=== PATIENT | female | born 2000 | race Caucasian/White ===

== ENCOUNTER → 2022-03-13 12:06 | Outpatient (CLI) | payer OTHER, SELFPAY ==
--- NOTE | ~2022-03-13 | US_ITS ---
EXAMINATION: US OB /maternal detail DATE: 03/13/2022 12:49 INDICATION: Encounter for supervision of normal . TECHNIQUE: Real-time ultrasound of the pelvis was performed. COMPARISON: Ultrasound 12/31/2021 FINDINGS: There is a single living fetus in vertex presentation. The placenta is posterior, 5.5 cm from the ce rvix. heart rate is 154 beats per minute (bpm). The amniotic fluid volume is subjectively tania l. The following biometric data were obtained: Biparietal diameter (BPD): 4.6 cm; head circumference (HC): 17.5 cm; abdominal circumference (AC): 15 .4 cm; femur length (FL): 3.1 cm. These measurements are concordant. Estimated weight is 328 g +/- 49 g, which correlates with the 32nd percentile when 07/29/22 is used as estimated date of delivery. As single measurements, these parameters are each equal to the following estimated gestational ages w ith ranges of +/- 2 standard deviations: BPD: 19 weeks 6 days (18 weeks 1 days - 21 weeks 4 days). HC: 20 weeks 0 days (18 weeks 4 days - 21 weeks 3 days). AC: 20 weeks 4 days (18 weeks 3 days - 22 weeks 4 days). FL: 19 weeks 3 days (17 weeks 5 days - 21 weeks 2 days). estimated gestational age based solely on measurements from this exam is 20 weeks 0 days +/- 1 weeks 3 days. The cerebral ventricles, cerebellum, cisterna magna, nuchal fold, lip and visualized portions of the spine are normal. The heart is normal. The diaphragm, stomach, kidneys, and bladder are normal. There are two umbilical arteries to yield a 3-vessel cord. The cord insertion is normal. IMPRESSION: 1. Single living fetus in vertex presentation. 2. Estimated weight is 328 g +/- 49 g, which correlates with the 32nd percentile when 07/29/22 is used as estimated date of delivery. 3. Normal anatomic survey. Reviewed, dictated and finalized at location A. IMPRESSION: 1. Single living fetus in vertex presentation. 2. Estimated weight is 328 g +/- 49 g, which correlates with the 32nd pe rcentile when 07/29/22 is used as estimated date of delivery. 3. Normal anatomic survey.
== END ==
PROVIDERS: PCP Family Medicine; Visit Provider Obstetrics & Gynecology
DX: Z34.92 Encounter for supervision of normal pregnancy, unspecified, second trimester (principal); Z3A.20 20 weeks gestation of pregnancy
CPT/HCPCS: 76805

== ENCOUNTER 2022-05-25 22:55 | Outpatient (RCR) | payer OTHER, SELFPAY | END 2022-08-23 23:59 | disposition home or self-care (01) | LOC: ANHOBOP 22:55 | PROVIDERS: PCP Family Medicine; Visit Provider Obstetrics & Gynecology | DX: O36.8190 Decreased fetal movements, unspecified trimester, not applicable or unspecified (principal); Z3A.30 30 weeks gestation of pregnancy | CPT/HCPCS: 59025 ==

== ENCOUNTER 2022-07-22 11:28 | Outpatient (CLI) | payer OTHER, SELFPAY ==
[2022-07-22 12:01] VITALS: BP 141/88; PULSE 75
[2022-07-22 12:03] LABS: Basophils Percent Auto 0.2 % (0.2-1.2); Eosinophils Absolute Auto 0.3 K/mm3 (0-0.3); Eosinophils Percent Auto 2.3 % (0-4.4); Hematocrit 36.2 % (37.0-47.0); Hemoglobin 11.8 g/dL (12.0-15.0); Immature Granulocyte Absolute 0.03 K/mm3 (0.00-0.031); Immature Granulocyte Percent A 0.3 % (0-0.5); Lymphocytes Absolute Auto 1.67 K/mm3 (0.9-3.2); Lymphocytes Percent Auto 14.7 % (18.3-44.2); Mean Corpuscular HGB Conc 32.6 g/dl (32-36); Mean Corpuscular Volume 88.9 fl (80-100); Mean Platelet Volume 11.4 fl (7.4-10.4); Monocytes Absolute Auto 0.6 K/mm3 (0.1-0.6); Monocytes Percent Auto 5.4 % (2.6-8.5); Neutrophils Absolute Auto 8.8 K/mm3 (1.3-6.7); Neutrophils Percent Auto 77.1 % (45.5-73.1); Platelet Count Result 244 k/mm3 (150-375); Red Blood Count 4.07 M/mm3 (4.2-5.4); Red Cell Distribution Width 14.1 % (11.5-14.5); White Blood Count 11.4 K/mm3 (4.5-10.0)
[2022-07-22 12:16] VITALS: BP 134/78; PULSE 81
[2022-07-22 12:16] LABS: Alanine Aminotransferase 11 U/L (6-35); Albumin Level 3.5 g/dL (3.5-5.1); Alkaline Phosphatase 139 U/L (38-126); Anion Gap 5 mmol/L (8-16); Aspartate Amino Transferase 17 U/L (14-36); Bilirubin,Total 0.3 mg/dL (0.2-1.3); Blood Urea Nitrogen 8 mg/dL (7-17); Calcium 8.7 mg/dL (8.4-10.2); Carbon Dioxide 26 mmol/L (22-30); Chloride 103 mmol/L (98-107); Estimated Glomerular Filt Rate > 60; Glucose 79 mg/dL (65-110); Potassium 4.3 mmol/L (3.4-5.0); Sodium 134 mmol/L (137-145); Uric Acid 4.3 mg/dL (2.5-7.5)
[2022-07-22 12:31] VITALS: BP 130/77; PULSE 75
[2022-07-22 12:42] LABS: Total Protein Urine Random 107 mg/dL; Ur Ttl Prot Creatinine Ratio 0.37 mg/mg (0-0.20)
--- NOTE | 2022-07-22 13:05 | PC.NURSE ---
Called Dr. Bueno with lab results, and BPs. February D/C home.
== END 2022-07-22 13:18 | disposition home or self-care (01) ==
LOC: ANHOBOP 11:34 → ANHLDR 11:34
PROVIDERS: PCP Family Medicine; Visit Provider Obstetrics & Gynecology
DX: O13.3 Gestational [pregnancy-induced] hypertension without significant proteinuria, third trimester (principal); Z3A.39 39 weeks gestation of pregnancy
CPT/HCPCS: 36415; 59025; 80053; 82570; 84156; 84550; 85025; 99199

== ENCOUNTER 2022-07-29 02:35 | Observation (INO) | payer OTHER, SELFPAY ==
--- NOTE | 2022-07-29 03:59 | PC.NURSE ---
RNJoe notified Dr. Ho of PTs arrival to unit with complaints of contractions. SVE performed on admission 2. Nurse performed SVE an hour later, PT had no cervical change. Contractions 5-6 minutes apart. Discharge orders received.
[2022-07-29 04:15] VITALS: BMI 47.1
--- NOTE | 2022-07-29 04:28 | OBADM ---
This patient, Sunshine Goldstein, admitted to the OB room Labor/Delivery/Recovery 106 for observation. Patient/family oriented to hospital policies and general routines including ID bracelet, bed and alarms, visiting hours, pain management, procedures, bathroom and other care routines, personal items, smoking policy, room service/diet, and visiting hours. Patient/Family are encouraged to report perceived risks to care and to ask questions if they do not understand what they are told or what they should do.
--- NOTE | 2022-07-29 08:06 | PM.OBTRLD ---
OB - Triage/Final Diagnosis Visit Information Date of evaluation: 07/29/22 Reason for evaluation: threatened labor Comments/Additional reasons for admission: I have assessed the risk for this patient, Sunshine Bettie Goldstein, and determined that she would benefit from observation care. Evaluation Vital signs: Vital Signs - 24 hr 07/29/22 04:15 Oxygen Delivery Room Air
== END 2022-07-29 04:27 | disposition home or self-care (01) ==
PROVIDERS: Admitting Provider Obstetrics & Gynecology; PCP Family Medicine; Visit Provider Obstetrics & Gynecology
DX: O47.1 False labor at or after 37 completed weeks of gestation (principal); Z3A.40 40 weeks gestation of pregnancy
CPT/HCPCS: G0378; G0379

== ENCOUNTER 2022-07-29 08:52 | Inpatient (IN) | payer OTHER, SELFPAY ==
[2022-07-29] VITALS (113 sets, daily range): BP systolic 90–158; BP diastolic 37–115; PULSE 57–137; RESP 18; TEMP 36.6–36.9; O2SAT 91–100; BMI 47.2
--- NOTE | 2022-07-29 09:12 | LDADM ---
This patient, Sunshine Goldstein, was admitted to Labor/Delivery/Recovery 106 on 07/29/22 at 08:52. Plans for labor, pain management and were discussed with patient. Patient/family oriented to hospital policies and general routines including ID bracelet, bed and alarms, visiting hours, pain management, procedures, bathroom and other care routines, personal items, smoking policy, room service/diet and guest tray routines, security routines, and visiting hours. Patient/Family are encouraged to report perceived risks to care and to ask questions if they do not understand what they are told or what they should do. See OBIX for further documentation.
[2022-07-29 09:28] LABS: Basophils Percent Auto 0.2 % (0.2-1.2); Eosinophils Absolute Auto 0.2 K/mm3 (0-0.3); Eosinophils Percent Auto 1.2 % (0-4.4); Hematocrit 36.9 % (37.0-47.0); Hemoglobin 12.2 g/dL (12.0-15.0); Immature Granulocyte Absolute 0.06 K/mm3 (0.00-0.031); Immature Granulocyte Percent A 0.4 % (0-0.5); Lymphocytes Absolute Auto 1.51 K/mm3 (0.9-3.2); Lymphocytes Percent Auto 11.1 % (18.3-44.2); Mean Corpuscular HGB Conc 33.1 g/dl (32-36); Mean Corpuscular Hemoglobin 29.1 pg (26-34); Mean Corpuscular Volume 88.1 fl (80-100); Mean Platelet Volume 11.3 fl (7.4-10.4); Monocytes Absolute Auto 0.6 K/mm3 (0.1-0.6); Monocytes Percent Auto 4.3 % (2.6-8.5); Neutrophils Absolute Auto 11.3 K/mm3 (1.3-6.7); Neutrophils Percent Auto 82.8 % (45.5-73.1); Platelet Count Result 234 k/mm3 (150-375); Red Blood Count 4.19 M/mm3 (4.2-5.4); Red Cell Distribution Width 14.1 % (11.5-14.5); White Blood Count 13.6 K/mm3 (4.5-10.0)
[2022-07-29] MEDS: fentaNYL CITRATE INJ (*CRX) 100 MCG/2 ML VIAL 50 MCG IV PUSH (09:29)
[2022-07-29] MEDS: LACTATED RINGERS 1,000 ML 125 ML IV CONT ×3 (09:30→10:59)
--- NOTE | 2022-07-29 10:48 | WPDANESEPP ---
Anes - Eval Pre Procedure Procedure: labor epidural Date/Time: 07/29/22 10:48 Surgeon: karon Preop Diagnosis: Labor Pain Pre Op Diagnosis: Labor Patient Data Age: 21 Gender: F Height: 1.7 m Weight: 136.8 kg Last Vital Signs Pulse 71 07/29/22 10:46 BP 113/47 L 07/29/22 10:46 Pulse Ox 97 07/29/22 10:44 O2 Del Method Room Air 07/29/22 09:18 Allergies Allergy/AdvReac Type Severity Reaction Status Date / Time No Known Allergies Allergy Verified 07/22/22 10:33 Home Medications Medication Instructions Recorded Confirmed Type vitamins-iron fumarate 65 1 tablet PO DAILY 12/18/21 07/29/22 History mg iron-folic acid 1 mg tablet sertraline 50 mg tablet (Zoloft) 50 mg PO DAILY #30 tabs 01/14/22 07/29/22 Rx famotidine 20 mg tablet (Acid 20 mg PO DAILY #90 tabs 02/13/22 07/29/22 Rx Optical Advisor (famotidine)) albuterol sulfate 90 mcg/actuation 1 inh inhalation Q4H PRN shortness 02/14/22 07/29/22 Rx aerosol inhaler of breath or wheezing #8.5 grams Laboratory Tests 07/29/22 07/29/22 07/29/22 09:23 09:23 09:23 WBC 13.6 K/mm3 H K/mm3 (4.5-10.0) RBC 4.19 M/mm3 L M/mm3 (4.2-5.4) Hgb 12.2 g/dL g/dL (12.0-15.0) Hct 36.9 % L % (37.0-47.0) MCV 88.1 fl fl (80-100) MCH 29.1 pg pg (26-34) MCHC 33.1 g/dl g/dl (32-36) RDW 14.1 % % (11.5-14.5) Plt Count 234 k/mm3 k/mm3 (150-375) MPV 11.3 fl H fl (7.4-10.4) Immature Gran % (Auto) 0.4 % % (0-0.5) Neut % (Auto) 82.8 % H % (45.5-73.1) Lymph % (Auto) 11.1 % L % (18.3-44.2) [place] % (Auto) 4.3 % % (2.6-8.5) Eos % (Auto) 1.2 % % (0-4.4) Baso % (Auto) 0.2 % % (0.2-1.2) Lymph # (Auto) 1.51 K/mm3 K/mm3 (0.9-3.2) [place] # (Auto) 0.6 K/mm3 K/mm3 (0.1-0.6) Eos # (Auto) 0.2 K/mm3 K/mm3 (0-0.3) Baso # (Auto) 0.0 K/mm3 K/mm3 (0.0-0.1) Abs Immat Gran (auto) 0.06 K/mm3 H K/mm3 (0.00-0.031) Absolute Neuts (auto) 11.3 K/mm3 H K/mm3 (1.3-6.7) Absolute Nucleated RBC 0.0 K/mm3 K/mm3 (0.0-0.012) Nucleated RBC % 0.0 % % (0.0-0.2) RPR Pending Blood Type AB Positive Antibody Screen Negative : gestational age (40 weeks) Patient hx anesthesia problems: none Family hx anesthesia problems: none Results Review: All pre-operative results and documents have been reviewed as part of the pre-operative evaluation. [facility] Past Medical History Medical History Asthma Depression Suppression of menstruation Family History Family History Mother Diabetes mellitus Depression Asthma Grandparent Chronic obstructive pulmonary disease Social History Social History Smoking status: Never smoker Tobacco type: e-cigarettes/vaping Second hand tobacco smoke exposure: No Smoking end date: 12/11/21 Alcohol intake: never Substance use: never Substance use type: does not use Additional living arrangements comments: parents Gender identity (if verbalized by the patient): Female Sexual Orientation (if Verbalized by the Patient): Straight or Heterosexual Spiritual care concerns: No Exam Day of Procedure 07/29/22 10:48 Patient weight: morbidly obese Heart: regular rate and rhythm Lungs: clear to auscultation Airway: Mallampati scale class II Neurological: alert and oriented
[2022-07-29] MEDS: OXYTOCIN 30 UNITS/NS 500 ML 30 UNITS/500 ML BAG IV CONT (11:01)
--- NOTE | 2022-07-29 15:19 | WPDHPUPDATE1 ---
History and Physical Update Update Date/Time: 07/29/22 15:19 History and Physical has been reviewed, including an updated exam of the patient. There are NO changes in the patient's condition. Risks, benefits, and alternatives have been discussed and questions answered. Patient agrees to proceed with procedure.
--- NOTE | 2022-07-29 15:19 | WPDOBADMIT ---
Obstetrics - Admit Note Admission Note: record reviewed. No pertinent additions to the history and/or any subsequent changes in the physical findings that are not consistent with the expected course of the were found. Additions to the history and/or subsequent changes in the physical findings follow. None.
--- NOTE | 2022-07-29 15:19 | PM.OBPRVD ---
OB - Delivery Note Procedure Induction method: None Delivery augmentation: Pitocin Delivery monitor: External FHT and Internal Uterine Route of delivery: Episiotomy description: None Laceration Description: Labial and Superficial Specimen: Yes Quantitative Blood Loss (ml): 250 Anesthesia type: Epidural Disposition: Floor Complications: none Narrative: Patient prepped draped usual manner for this procedure. Maternal expulsive efforts readily delivered vertex. Rest baby was delivered without difficulty and cord was clamped and cut. Placenta delivered spontaneously with the uterus well contracted. Cervix vagina and vulva were inspected with minimal vaginal superficial lacerations which were not bleeding. Immediate postoperative condition of mother and baby were both excellent. Baby Weeks of gestation at delivery: 40 Infant gender: Female Weight (pounds): 6 Weight (ounces): 15 presentation: vertex Placenta delivery description: Spontaneous Cord Vessel Description: 3 Vessels score one minute: 9 score five minutes: 9 AMG Delivery Billing Delivery Delivery: Delivery Charge
[2022-07-29] MEDS: LORATADINE 10 MG TABLET PO (17:40)
[2022-07-29] MEDS: BENZOCAINE 20% AER SPR (*SP) 56 GM CAN 1 SPRAY TOPICAL (18:26)
[2022-07-29] MEDS: WITCH HAZEL 40 PADS 1 PAD TOPICAL (18:26)
--- NOTE | 2022-07-29 18:42 | PC.NURSE ---
Patient transferred to post room # 281 via ( w/c ). Support person present, and pushing baby in crib. Oriented to unit, room, information board, rooming in, admission packet and security measures. Patient verbalizes understanding.
[2022-07-29] MEDS: IBUPROFEN 600 MG TABLET PO (20:28)
[2022-07-30 01:12] VITALS: BP 128/87; PULSE 89; RESP 18; TEMP 36.9; O2SAT 98
[2022-07-30 04:30] VITALS: BP 142/89; PULSE 87; RESP 18; TEMP 36.9; O2SAT 98
[2022-07-30 06:43] LABS: Hematocrit 35.6 % (37.0-47.0); Hemoglobin 11.4 g/dL (12.0-15.0)
[2022-07-30 07:50] VITALS: BP 134/61; PULSE 89; RESP 18; TEMP 36.8; O2SAT 99
[2022-07-30] MEDS: MULTIVIT/MIN/PREN/FOL AC/IRON TABLET 1 TAB PO (08:30)
[2022-07-30] MEDS: DOCUSATE SODIUM 100 MG CAPSULE PO ×2 (08:30→15:31)
[2022-07-30] MEDS: IBUPROFEN 600 MG TABLET PO ×2 (08:30→15:31)
--- NOTE | 2022-07-30 08:30 | PC.NURSE ---
[id number] Introductions were made, then consulted with patient to assess needs related to . Mother led the conversation with her?plans to feed?her infant and the?experience so far. Resources provided for inpatient and outpatient services using a resource guide and mom/baby guide. Mother voiced understanding of information and requests assistance as was just brought back into the room. RN changed a wet diaper. Mother works well with her infant with encouragement and education. Encouraged understanding of the benefits of skin to skin (unwrapping infant and placing vertically on her chest), responsive feeding and how to watch for early feeding signs, frequency of feeding on demand about every 8-12 times in 24 hours (every 2-3 hours), how to encourage , milk production, hand expression, spoon/syringe feeding, signs of adequate intake/output using the pie demonstration, and how to record on the feeding sheet. Father of is an active participant with the education. Infant attempts with an open mouth with no latch or sucking. Mother hand expressed milk onto a spoon, then was encouraged to suck on mother's finger. had rare sucking efforts but when she did it was encouraged with syringe feeding colostrum. Mother voiced understanding of responsive feedings, stimulating with skin to skin, hand expressed colostrum, massage touch, changing positioning, talking to infant to encourage if it has been 2 -3 hours since the start of the last , to call if infant does not latch or there is discomfort with . Infant is skin to skin on mother. Reported to the primary RN.
[2022-07-30] MEDS: SERTRALINE HCL 50 MG TABLET PO (08:31)
[2022-07-30 09:21] LABS: Rapid Plasma Reagin Non-Reactive (NonReactive)
[2022-07-30 11:44] VITALS: BP 134/68; PULSE 93; RESP 16; TEMP 36.8; O2SAT 99
--- NOTE | 2022-07-30 11:56 | PC.NURSE ---
[id number] Consulted with patient to assess needs related to . Mother demonstrates understanding of the benefits of skin to skin, responding to feeding cues, frequencies of feeding 8-12 times in 24 hours (approximately 2-3 hours), duration of feedings, milk production, intake/output feeding sheet and signs of adequate intake encouraging swallowing at the breast. Reviewed positioning and alignment, supporting breast, off-centered (asymmetrical latch) and leading with the chin with big open wide gape. was not able to maintain latch. Nipple care reviewed with optimal latch and good positioning, and to have clean hands when touching the nipple/breast. Infant is encouraged with syringe feeding 1ml colostrum with infant sucking on RN's finger. Father is holding infant while mother rest and will call for assistance with the next feeding. Resources used to facilitate learning were used from the tool and mom and baby guide. Mother voiced understanding of the education shared, calling for assistance if the infant does not wake to breastfeed, or there is discomfort with . Reported to the primary RN.
--- NOTE | 2022-07-30 14:28 | WPDANLDPN2 ---
Anes-Prog Note L&D Date/Time: 07/30/22 14:28 Comfortable throughout: labor and delivery Neuraxial method: epidural Epidural/Spinal procedure site: clean & non-tender Neuro status: Neuro function grossly intact. Cardiovascular status: normal Respiratory status: normal Airway patency: baseline Mental status: baseline Post-Op hydration status: normal Vital Signs: Last Vital Signs Temp 36.8 C 07/30/22 11:44 Pulse 93 07/30/22 11:44 Resp 16 07/30/22 11:44 BP 134/68 07/30/22 11:44 Pulse Ox 99 07/30/22 11:44 O2 Del Method Room Air 07/29/22 20:15 Pain score (VAS): 10/29 Post-procedural complaints: none Patient feedback: Patient satisfied with anesthetic care.
--- NOTE | 2022-07-30 14:40 | PC.NURSE ---
[id number] Consulted with patient to assess needs related to . Grandmother is holding . Reviewed early feeding cues with mother and encouraged skin to skin. Mother works well with her with encouragement. Reviewed working with infant, breast, nipples and how to protect the nipples with an optimal deep latch, good positioning, and good hand washing. Reviewed responding to feeding cues, frequencies of feeding 8-12 times in 24 hours (approximately 2-3 hours), duration of feedings, milk production, intake/output recording on the feeding sheet, signs of adequate intake using the pie demonstration and encouraging swallowing at the breast. Reviewed positioning and alignment, supporting breast, off-centered (asymmetrical latch) and leading with the chin with big open wide gape. latched optimally to the right breast in football position. Education given to mother of how to visualize effective . was able to maintain latch without discomfort to mother. Nipple care reviewed with optimal latch, good positioning, detaching infant (if there is not self-detaching) with a good deep latch. Resources used to facilitate learning were used from the tool and mom and baby guide. Mother voiced understanding of the education shared, calling for assistance if the infant does not wake to latch or if there is discomfort with . Reported to the primary RN.
[2022-07-30 20:00] VITALS: BP 110/58; PULSE 94; RESP 16; TEMP 36.8; O2SAT 99
[2022-07-31] MEDS: DOCUSATE SODIUM 100 MG CAPSULE PO ×2 (01:33→08:37)
[2022-07-31] MEDS: IBUPROFEN 600 MG TABLET PO ×2 (01:34→08:37)
--- NOTE | 2022-07-31 04:17 | PM.OBDSVD ---
DS: Admitting Diagnosis Discharge Date 07/31/2022 Admitting Diagnosis OB - DS: Summary OB Procedures : None OB Procedures Intrapartum: Spontaneous Vag Delivery OB Procedures: : None Time Spent with Patient Time attestation: Total time spent providing and/or coordinating discharge services: DS: Data Data Completed and Pending Pending studies at discharge: Pending at discharge 07/29/22 15:08 Surgical [PTH] Routine Labs on day of discharge: Labs from last 24 hours 07/30/22 07/29/22 05:40 09:23 Hgb 11.4 L Hct 35.6 L RPR Non-reactive Discharge Plan Discharge Discharging Clinician: Marcio Bueno Patient Disposition: Home, Self-Care Activity: as tolerated Diet: as tolerated Patient Instructions: Antibiotic Form Stand Alone Forms: General Discharge Information Follow-up/Referrals: Marcio Bueno MD [Physician] - 3 Weeks Discharge Medications: New ibuprofen 600 mg Tablet 600 mg PO Q6H PRN (Reason: Cramping) Qty: 30 0RF Continued vit-iron fum-folic ac 65 mg iron- 1 mg tablet 1 tablet PO DAILY famotidine [Acid Optometrist/Practice Owner (famotidine)] 20 mg tablet 20 mg PO DAILY Qty: 90 3RF sertraline [Zoloft] 50 mg tablet 50 mg PO DAILY Qty: 30 5RF albuterol sulfate 90 mcg/actuation HFA aerosol inhaler 1 inh inhalation Q4H PRN (Reason: shortness of breath or wheezing) Qty: 8.5 2RF Date of admission: 07/29/22 08:52 Primary Care Provider: George Lopez Admitting Provider: Marcio Bueno Attending physician on admission: Marcio Bueno Condition: Stable
[2022-07-31 08:20] VITALS: BP 134/76; PULSE 74; RESP 16; TEMP 36.6; O2SAT 99
[2022-07-31] MEDS: WITCH HAZEL 40 PADS 1 PAD TOPICAL (08:38)
[2022-07-31] MEDS: MULTIVIT/MIN/PREN/FOL AC/IRON TABLET 1 TAB PO (08:38)
[2022-07-31] MEDS: LANOLIN (LANSINOH) 7.5 GM CREAM 1 APPLIC TOPICAL (08:38)
[2022-07-31 08:45] VITALS: PULSE 74; RESP 16; O2SAT 99
--- NOTE | 2022-07-31 13:32 | PC.NURSE ---
3125 -Consulted with patient regarding and going home. is in the nursery for an assessment. Mother states she will call for assistance with the next latch. [phone] Mother led the conversation with her experience and plan to feed her infant so far and her ability to independently latch infant optimally without discomfort. Reminded parents to use good handwashing technique to prevent infection. Mother is feeding appropriately for growth of infant and understands stimulating to eat if needed. Infant has had appropriate feedings in the last 24 hours meets the outcomes for weight, output, jaundice at this time discussion using the test results, weights and the pie demonstration. Mother demonstrates latching her infant to the right breast using the football positioning. Mother was encouraged to detach and encourage a deeper latch and mother states, that feels so much better . She is confident to feed her infant at home or when to call for assistance and will call if she needs assistance with a deeper more optimal latch on the left breast. Reinforced understanding of milk production, transition of milk, signs of adequate intake, prevention/relief of engorgement, responsive after visualizing feeding cues, the different methods of stimulating infant to breastfeed 2-3 hours after the start of the last feeding, community resources, medication information reviewed per [facility] and when to call a provider using the resource of the mom and baby guide/[facility] website. Infant self detached from the right breast with no nipple misshape. Mother latched infant effectively and independently to the left breast using football positioning with no pain. Mother voiced understanding of the education shared. Reported to the primary RN.
[2022-08-01 11:37] VITALS: BP 141/94; PULSE 79; RESP 20; TEMP 37.3; O2SAT 99
== END 2022-07-31 12:35 | disposition home or self-care (01) | DRG 807 ==
LOC: ANHLDR 10:49 → ANHOB2 18:53
PROVIDERS: Admitting Provider Obstetrics & Gynecology; PCP Family Medicine; Visit Provider Obstetrics & Gynecology
DX: O99.52 Diseases of the respiratory system complicating childbirth (principal); Z37.0 Single live birth; J45.909 Unspecified asthma, uncomplicated; Z3A.40 40 weeks gestation of pregnancy; O99.344 Other mental disorders complicating childbirth; F32.A Depression, unspecified; O70.0 First degree perineal laceration during delivery
CPT/HCPCS: 36415; 85014; 85018; 85025; 86592; 86850; 86900; 86901; 88307; A9270; J2590; J2795; J3010; J7120

== ENCOUNTER 2023-10-21 14:23 | Outpatient (CLI) | payer OTHER, SELFPAY ==
[2023-10-21 15:00] LABS: Strep Group A RT-PCR DETECTED (Negative)
[2023-10-21 15:15] LABS: Influenza A QL RT-PCR Negative (Negative); Influenza B QL RT-PCR Negative (Negative); RSV RNA, RT-PCR Negative (Negative); SARS-CoV-2 RNA PCR Negative (Negative)
== END 2023-10-21 14:24 | disposition home or self-care (01) ==
LOC: ANHLAB 14:25
PROVIDERS: PCP Family Medicine; Visit Provider Physician Assistant
DX: J02.9 Acute pharyngitis, unspecified (principal); R05.9 Cough, unspecified; Z20.822 Contact with and (suspected) exposure to COVID-19
CPT/HCPCS: 87637; 87651